=== PATIENT | male | born 1960 | race Caucasian/White ===

== ENCOUNTER 2019-08-02 07:58 | Outpatient (CLI) | payer BC, MEDICARE ==
[2019-08-02 12:37] LABS: Hemoglobin 11.9 g/dL (14.0-18.0); Mean Corpuscular HGB CONC 32.4 g/dL (32.0-36.0); Mean Corpuscular Hemoglobin 30.2 pg (27.0-31.0); Mean Platelet Volume 7.4 fL (7.4-10.4); Platelet Count 147 thou/uL (130-400); RBC Distribution Width 12.4 % (11.5-14.5); Red Blood Cell (RBC) Count 3.94 mill/uL (4.70-6.10); White Blood Cell (WBC) Count 4.7 thou/uL (4.8-10.8)
[2019-08-02 12:54] LABS: Bacteria/HPF None Seen HPF (None Seen); Bilirubin Negative (Negative); Blood, Urine Negative (Negative); Clarity Clear (Clear); Glucose, Urine (Dipstick) Normal (Negative); Leukocyte 25 Leu/uL (Negative); Nitrite Negative (Negative); Protein, Urine (Dipstick) Negative (Neg-Trace); RBC/HPF 0-3 HPF (0-3); Squamous Epithelial None Seen HPF (0-3); Urobilinogen Normal mg/dL (Less than 2); WBC/HPF 0-3 HPF (0-3)
[2019-08-02 13:06] LABS: Anion Gap 9 mmol/L (10-20); BUN (Urea Nitrogen) 20 mg/dL (8.4-25.7); Calc. Creatinine Clearance 0 mL/min (70-130); Calcium 9.6 mg/dL (7.8-10.44); Carbon Dioxide 32 mmol/L (22-29); Chloride 103 mmol/L (98-107); Estimated GFR-MDRD 83; Glucose 102 mg/dL (70-105); Potassium 5.5 mmol/L (3.5-5.1); Sodium 138 mmol/L (136-145)
[2019-08-03 07:14] LABS: % Free PSA 5.5 % (.); Total PSA 10.8 ng/mL (0.0-4.0)
== END 2019-08-02 07:59 | disposition home or self-care (01) ==
LOC: LABBT 07:58
PROVIDERS: ATTEND Urology
DX: Z01.818 Encounter for other preprocedural examination (principal); C61 Malignant neoplasm of prostate
CPT/HCPCS: 80048; 81001; 84153; 84154; 85027; 87086; 93005; 93010

== ENCOUNTER 2019-08-09 09:12 | Day surgery (SDC) | payer BC, MEDICARE ==
[2019-08-02 11:37] VITALS: BMI 37.5
[2019-08-09] MEDS ORDERED: cefTRIAXone\\ROCEPHIN 1 GM VIAL ONE (09:47)
[2019-08-09] MEDS ORDERED: Sodium Chloride 0.9% 100 ML ONE (09:48)
[2019-08-09] MEDS ORDERED: Fentanyl 100 MCG/2 ML VIAL ONE (11:52)
[2019-08-09] MEDS ORDERED: Midazolam HCl 2 mg/2 ml Vial ONE (11:52)
[2019-08-09] MEDS ORDERED: Bupivacaine 0.25% HCL 30 ML VIAL ONE (12:01)
[2019-08-09] MEDS ORDERED: Lidocaine 1% (PF) 30 ML VIAL ONE (12:23)
[2019-08-09] MEDS ORDERED: PROPOFOL 200 MG/20 ML VIAL ONE (14:57)
[2019-08-09] MEDS ORDERED: Lidocaine 1% PF 5 ML VIAL ONE (14:57)
--- NOTE | 2019-08-09 19:04 | OP ---
DATE OF PROCEDURE: 08/09/2019 PREOPERATIVE DIAGNOSIS: Malignant tumor prostate. POSTOPERATIVE DIAGNOSIS: Malignant tumor prostate. PROCEDURE: Transrectal ultrasound-guided biopsy of the prostate. ANESTHESIA: TIVA. SPECIMEN: A 12-core prostate biopsy samples. COMPLICATIONS: None. ESTIMATED BLOOD LOSS: 5 to 10 mL. DESCRIPTION OF PROCEDURE: After informed consent, the patient was taken to the operating room, transferred to the table. Anesthesia was established. A time-out was performed showing correct patient, site, and procedure. Preoperative antibiotics were administered. He was positioned on his left side. A digital rectal exam was performed showing a 40 g prostate with mild nodularity on the left side toward the base. The transrectal probe was inserted and 20 mL of lidocaine instilled as a prostate block. I then measured the prostate with measurements showing, width 5.15, height 3.06, length 5.27, and volume 43.56. Preoperative PSA is 10.8. Standard 12 core biopsy was then performed and all prostate specimens were sent in individual containers with formalin. The transrectal probe was then removed. The patient transferred back to his hospital bed and taken to PACU in stable condition, where he will be discharged to home upon recovery. Job ID: [id number]
== END 2019-08-09 13:46 | disposition home or self-care (01) ==
LOC: SDC 09:12
PROVIDERS: ATTEND Urology
PROC: 0VB03ZX Excision of Prostate, Percutaneous Approach, Diagnostic (ICD-10-PCS; principal; 2019-08-09)
DX: C61 Malignant neoplasm of prostate (principal); C14.0 Malignant neoplasm of pharynx, unspecified; E07.9 Disorder of thyroid, unspecified; Z79.899 Other long term (current) drug therapy
CPT/HCPCS: 88305; 88341; 88342; J0696; J2001; J2250; J2704; J3010; J3490; S0020

== ENCOUNTER 2019-10-13 11:31 | Emergency (ER) | payer BC, MEDICARE ==
[2019-10-13] MEDS ORDERED: Mag-Al 1200 mg/1200 mg/30 ML UDCUP ONE (12:02)
[2019-10-13] MEDS ORDERED: Lidocaine Viscous Sol 2% 15 ml UD Cup ONE (12:02)
[2019-10-13] MEDS ORDERED: Famotidine 20 MG TAB ONE (12:02)
--- NOTE | 2019-10-13 12:17 | RAD ---
XR Chest 1 View Portable HISTORY: Chest pain COMPARISON: 10/09/2019 FINDINGS: The heart size is normal. The lungs are well expanded without focal areas of consolidation, pneumothorax or large pleural effusions. There is chronic blunting of the right costophrenic angle. There are degenerative changes in the spine. Truncation of the distal right clavicle is stable . There are chronic changes in the right shoulder. IMPRESSION: No radiographic evidence of acute cardiopulmonary process.
[2019-10-13 12:23] LABS: #Eosinphils 0.1 thou/uL (0.0-0.7); #Lymphocytes 0.9 thou/uL (1.20-3.40); #Monocytes 0.4 thou/uL (0.11-0.59); #Neutrophils 3.6 thou/uL (1.40-6.50); %Basophils 0.2 % (0.0-1.0); %Eosinophils 1.4 % (0.0-10.0); %Monocytes 8.9 % (0.0-10.0); %Neutrophils 71.6 % (42.0-75.0); Hemoglobin 14.3 g/dL (14.0-18.0); Mean Corpuscular HGB CONC 31.5 g/dL (32.0-36.0); Mean Corpuscular Hemoglobin 28.8 pg (27.0-31.0); Mean Corpuscular Volume 91.4 fL (78.0-98.0); Platelet Count 154 thou/uL (130-400); RBC Distribution Width 12.5 % (11.5-14.5); Red Blood Cell (RBC) Count 4.97 mill/uL (4.70-6.10)
[2019-10-13 12:49] LABS: ALT (SGPT) 27 U/L (8-55); AST (SGOT) 41 U/L (5-34); Albumin 4.1 g/dL (3.5-5.0); Alkaline Phosphatase 66 U/L (40-110); Anion Gap 15 mmol/L (10-20); BUN (Urea Nitrogen) 13 mg/dL (8.4-25.7); Bilirubin, Total 0.8 mg/dL (0.2-1.2); CK (CPK) 161 U/L (30-200); Calc. Creatinine Clearance 0 mL/min (70-130); Calcium 9.5 mg/dL (7.8-10.44); Carbon Dioxide 30 mmol/L (22-29); Chloride 95 mmol/L (98-107); Estimated GFR-MDRD Greater than 90; Globulin 3.7 g/dL (2.4-3.5); Glucose 93 mg/dL (70-105); Protein, Total 7.8 g/dL (6.0-8.3); Sodium 136 mmol/L (136-145)
[2019-10-13] MEDS ORDERED: Morphine 4 MG/ML VIAL ONE (12:50)
[2019-10-13] MEDS ORDERED: Iopamidol-370 76% 500 ML 1 ML ONE (13:17)
[2019-10-13 13:25] LABS: Bacteria/HPF None Seen HPF (None Seen); Bilirubin Negative (Negative); Blood, Urine Negative (Negative); Clarity Clear (Clear); Glucose, Urine (Dipstick) Normal (Negative); Leukocyte Negative Leu/uL (Negative); Mucous/LPF Rare LPF (<2+); Nitrite Negative (Negative); Protein, Urine (Dipstick) 30 mg/dL (Neg-Trace); RBC/HPF 0-3 HPF (0-3); Squamous Epithelial None Seen HPF (0-3); Urobilinogen Normal mg/dL (Less than 2); WBC/HPF 0-3 HPF (0-3)
--- NOTE | 2019-10-13 14:10 | CT ---
EXAM: CT ABDOMEN AND PELVIS HISTORY: Right upper abdominal pain. COMPARISON: 12/17/2014 Procedure: Multiple contiguous axial images were obtained and a CT of the abdomen and pelvis with IV contrast. C oronal reformats were performed. FINDINGS: Lower Chest: Chronic changes in the lung bases. Vessels: Normal caliber aorta. No periaortic fat stranding. Heart: Normal heart size. No significant pericardial fluid Abdomen: Portal vein:Patent Gallbladder: Surgically absent Liver: Mild hypoattenuation liver due to hepatic steatosis. No enhancing masses. Pancreas: within normal limits. Spleen: within normal limits. Adrenals: within normal limits. Kidneys: Symmetric enhancement. No obstructive uropathy. 1.6 x 1.7 cm exophytic cyst in the upper arnold e of the right kidney. Peritoneum: No ascites or free air, no fluid collection. Bowel: Limited evaluation due to the lack of oral contrast administration. No evidence of bowel obstr uction. Ileocecal junction is unremarkable. Normal caliber appendix. Scattered fecal material in a nondistended, nondilated colon. Diverticulosis, without evidence of diverticulitis. Percutaneous bronwyn salima feeding tube is noted. Mesentery and Retroperitoneum: No enlarged mesenteric or retroperitoneal lymph nodes. Abdominal Wall: within normal limits. Pelvis: Reproductive Organs: Reproductive organs are unremarkable. Pelvis: No mass, lymphadenopathy, free air or free fluid. Bladder: within normal limits. Bones: No lytic or blastic lesions. Extensive degenerative changes of the distal thoracic and lumbar spine. Partial sacralization of the inferior most lumbar-type vertebral body. Multiple old right rib fractures. IMPRESSION: No evidence of acute intraabdominal\pelvic abnormality.
== END 2019-10-13 14:34 | disposition home or self-care (01) ==
LOC: ERS 11:31
DX: R10.9 Unspecified abdominal pain (principal); R10.811 Right upper quadrant abdominal tenderness; E03.9 Hypothyroidism, unspecified; I10 Essential (primary) hypertension; Z79.891 Long term (current) use of opiate analgesic; Z79.899 Other long term (current) drug therapy
CPT/HCPCS: 36415; 71045; 74177; 80053; 81003; 81015; 82550; 84484; 85025; 93005; 96374; J2270; Q9967

== ENCOUNTER 2020-02-12 13:40 | Inpatient (IN) | payer BC, MEDICARE, OTHER ==
[2020-02-12 14:07] LABS: #Eosinphils 0.2 thou/uL (0.0-0.7); #Lymphocytes 2.4 thou/uL (1.20-3.40); #Monocytes 0.7 thou/uL (0.11-0.59); %Basophils 0.3 % (0.0-1.0); %Eosinophils 1.4 % (0.0-10.0); %Lymphocytes 19.3 % (21.0-51.0); %Monocytes 5.4 % (0.0-10.0); %Neutrophils 73.7 % (42.0-75.0); Hemoglobin 13.1 g/dL (14.0-18.0); Mean Corpuscular HGB CONC 32.6 g/dL (32.0-36.0); Mean Corpuscular Hemoglobin 31.5 pg (27.0-31.0); Mean Corpuscular Volume 96.6 fL (78.0-98.0); Mean Platelet Volume 7.7 fL (7.4-10.4); Platelet Count 224 thou/uL (130-400); RBC Distribution Width 12.5 % (11.5-14.5); Red Blood Cell (RBC) Count 4.17 mill/uL (4.70-6.10); White Blood Cell (WBC) Count 12.2 thou/uL (4.8-10.8)
[2020-02-12] MEDS ORDERED: Propofol 1,000 MG/100 ML VIAL IV ONE (14:08)
[2020-02-12] MEDS ORDERED: fentaNYL Citrate/PF 2,000 MCG in Sodium Chloride 0.9% 60 ML IV SCH (14:13)
[2020-02-12 14:16] LABS: Prothrombin Time 12.7 sec (12.0-14.7)
[2020-02-12 14:19] LABS: Analyzer IN Cardio ER; Base Excess (BEa) -7.7 mEq/L (-2.0 to +3.0); CO2 Tension 153.3 mmHg (35.0-45.0); Calcium, Ionized (arterial) 1.31 mmol/L (1.12-1.30); Carboxyhemoglobin (COHb) 0.4 gm% (0.0-3.0); Hemoglobin (Hb) 13.6 g/dL (14.0-18.0); O2 Tension (PaO2), arterial 91.4 mmHg (80.0-100.0); Potassium - ABG Lab 4.45 mmol/L (3.70-5.30)
[2020-02-12 14:20] LABS: Puncture Site RRA
[2020-02-12 14:21] LABS: ALV-art Gradient 429.975 (0-20)
[2020-02-12 14:26] LABS: ALT (SGPT) 150 U/L (8-55); AST (SGOT) 193 U/L (5-34); Albumin 3.8 g/dL (3.5-5.0); Alkaline Phosphatase 94 U/L (40-110); Anion Gap 20 mmol/L (10-20); BUN (Urea Nitrogen) 17 mg/dL (8.4-25.7); Bilirubin, Total 0.5 mg/dL (0.2-1.2); Calc. Creatinine Clearance 0 mL/min (70-130); Calcium 9.3 mg/dL (7.8-10.44); Carbon Dioxide 23 mmol/L (22-29); Chloride 101 mmol/L (98-107); Estimated GFR-MDRD 58; Globulin 3.9 g/dL (2.4-3.5); Glucose 180 mg/dL (70-105); Potassium 4.7 mmol/L (3.5-5.1); Protein, Total 7.7 g/dL (6.0-8.3); Sodium 139 mmol/L (136-145)
[2020-02-12 14:48] LABS: CKMB 1.9 ng/mL (0-6.6)
--- NOTE | 2020-02-12 14:50 | RAD ---
PORTABLE CHEST: Comparison: 10-13-2019 History: Post intubation. FINDINGS: The tracheostomy tube is in good position. The patient is rotated. The heart size is enlarged. No con fluent infiltrates. IMPRESSION: Placement of a tracheostomy tube in good position. POS: [facility]DI
[2020-02-12] MEDS ORDERED: Norepinephrine 8 MG/0.9% NS 250 ML ONE (14:54)
[2020-02-12 14:58] LABS: Actual Bicarbonate (HCO3a) 19.4 mEq/L (22-28); Analyzer IN Cardio ER; CO2 Tension 27.5 mmHg (35.0-45.0); Calcium, Ionized (arterial) 1.14 mmol/L (1.12-1.30); Hemoglobin (Hb) 12.3 g/dL (14.0-18.0); pH, Arterial 7.47 (7.35-7.45)
[2020-02-12 15:01] LABS: O2 Tension (PaO2), arterial 58.3 mmHg (80.0-100.0); Puncture Site RFA
[2020-02-12 15:02] LABS: ALV-art Gradient 192.525 (0-20)
[2020-02-12] MEDS ORDERED: Fentanyl 100 MCG/2 ML VIAL ONE ×2 (15:16→16:36)
[2020-02-12] MEDS ORDERED: Cefepime 2 GM VIAL ONE (15:33)
[2020-02-12 16:15] LABS: Bilirubin Negative (Negative); Blood, Urine Trace (Negative); Clarity Clear (Clear); Glucose, Urine (Dipstick) 100 mg/dL (Negative); Leukocyte 250 Leu/uL (Negative); Nitrite Negative (Negative); Protein, Urine (Dipstick) 50 mg/dL (Neg-Trace); Squamous Epithelial 0-3 HPF (0-3); Urobilinogen Normal mg/dL (Less than 2)
[2020-02-12 16:19] LABS: Bacteria/HPF 1+ HPF (None Seen)
[2020-02-12] MEDS ORDERED: Ondansetron ODT 4 MG TAB SL PRN (16:37)
[2020-02-12] MEDS ORDERED: Vancomycin 1 GM/200 ML BAG ONE (16:37)
[2020-02-12] MEDS ORDERED: Acetaminophen 325 MG TAB PO PRN ×2 (16:37→18:09)
[2020-02-12] MEDS ORDERED: Ondansetron PF 4 MG/2 ML Vial IVP PRN ×2 (16:37→18:09)
--- NOTE | 2020-02-12 17:06 | CT ---
HEAD CT WITHOUT CONTRAST: Date: 02-12-2020 Comparison: None History: Unresponsive patient. Technique: Axial CT imaging at 5 mm intervals from vertex through the skull base without contrast. FINDINGS: There is mild mucosal thickening involving the alveolar recess of bilateral maxillary sinuses. There is no displaced calvarial fracture. There is no intracranial hemorrhage, midline shift, mass effect or ventricular enlargement. IMPRESSION: No acute findings. Results called to Dr. Pineda at 4:22 p.m. 02-12-2020. Code CR
[2020-02-12] MEDS ORDERED: Propofol BOLUS 1,000 MG/100 ML VIAL IV PRN (17:55)
[2020-02-12] MEDS ORDERED: Morphine 2 MG/ML SYRINGE SLOW IVP PRN (17:55)
[2020-02-12] MEDS ORDERED: DISCONTINUE PREVIOUS NARCOTIC PAIN MEDICATIONS AND BENZODIAZEPINES FS SCH (17:55)
[2020-02-12] MEDS ORDERED: Fentanyl BOLUS 250 ML IVPB PRN (17:55)
[2020-02-12] MEDS ORDERED: Lorazepam 2 MG/ML VIAL SLOW IVP PRN (17:55)
[2020-02-12] MEDS ORDERED: Norepinephrine 8 MG/0.9% NS 250 ML IVPB SCH (17:58)
[2020-02-12] MEDS ORDERED: HumaLOG 300 UNITS/3 ML VIAL SC PRN (18:09)
[2020-02-12] MEDS ORDERED: Guaifenesin DM 100-10/5 ML UDCUP PO PRN (18:09)
[2020-02-12] MEDS ORDERED: Bisacodyl 10 MG SUPP PR PRN (18:09)
[2020-02-12] MEDS ORDERED: Acetaminophen 650 MG Suppository PR PRN (18:09)
[2020-02-12] MEDS ORDERED: Dextrose 50% Abboject 50 ML SYRINGE SLOW IVP PRN (18:09)
[2020-02-12] MEDS ORDERED: Dextrose 5% in Water 1,000 ML IV PRN (18:09)
[2020-02-12 18:12] VITALS: BMI 37.2
[2020-02-12] MEDS ORDERED: Bacteriostatic Water 30 ML VIAL FS PRN (18:41)
[2020-02-12] MEDS: Sodium Chloride 0.9% 1,000 ML IV SCH (18:52)
--- NOTE | 2020-02-12 19:00 | RAD ---
CHEST ONE VIEW: History: Dyspnea. Comparison: Earlier the same day. FINDINGS: Tracheostomy tube is in place. Heart size is enlarged. I do not see a significant change since the pr ior exam. IMPRESSION: Stable exam. POS: ASHOK
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
[2020-02-12] MEDS: Propofol 1,000 MG/100 ML VIAL IV PRN (20:54)
[2020-02-12] MEDS: methylPREDNISolone Sod Succ 40 MG VIAL IVP SCH (22:07)
[2020-02-12] MEDS ORDERED: Vancomycin 1 GM in Premix Bag 1 BAG IVPB SCH (23:00)
[2020-02-13] MEDS: Propofol 1,000 MG/100 ML VIAL IV PRN ×2 (02:08→05:17)
[2020-02-13] MEDS: Cefepime 1 GM in Sodium Chloride 0.9% 100 ML IVPB SCH ×2 (02:08→14:53)
[2020-02-13] MEDS: Vancomycin HCl 1.75 GM in Sodium Chloride 0.9% 500 ML IVPB SCH ×2 (03:49→15:49)
[2020-02-13] MEDS ORDERED: Cefepime 2 GM in Sodium Chloride 0.9% 100 ML IVPB SCH (04:00)
[2020-02-13 04:34] LABS: #Lymphocytes 0.5 thou/uL (1.20-3.40); #Monocytes 0.2 thou/uL (0.11-0.59); #Neutrophils 5.7 thou/uL (1.40-6.50); %Eosinophils 0.1 % (0.0-10.0); %Lymphocytes 7.5 % (21.0-51.0); %Monocytes 2.3 % (0.0-10.0); %Neutrophils 90.1 % (42.0-75.0); Hemoglobin 11.5 g/dL (14.0-18.0); Mean Corpuscular HGB CONC 33.6 g/dL (32.0-36.0); Mean Corpuscular Hemoglobin 31.2 pg (27.0-31.0); Mean Corpuscular Volume 92.8 fL (78.0-98.0); Mean Platelet Volume 8.2 fL (7.4-10.4); Platelet Count 138 thou/uL (130-400); RBC Distribution Width 12.3 % (11.5-14.5); Red Blood Cell (RBC) Count 3.69 mill/uL (4.70-6.10); White Blood Cell (WBC) Count 6.4 thou/uL (4.8-10.8)
[2020-02-13 04:49] LABS: Anion Gap 15 mmol/L (10-20); BUN (Urea Nitrogen) 19 mg/dL (8.4-25.7); Calc. Creatinine Clearance 158 mL/min (70-130); Calcium 8.9 mg/dL (7.8-10.44); Carbon Dioxide 23 mmol/L (22-29); Chloride 105 mmol/L (98-107); Estimated GFR-MDRD 86; Glucose 114 mg/dL (70-105); Potassium 4.2 mmol/L (3.5-5.1); Sodium 139 mmol/L (136-145)
[2020-02-13] MEDS: Levothyroxine Sodium 100 MCG TAB PO SCH (05:18)
[2020-02-13] MEDS: methylPREDNISolone Sod Succ 40 MG VIAL IVP SCH ×3 (06:45→21:03)
[2020-02-13] MEDS: Enoxaparin Sodium 40 MG/0.4 ML SYRINGE SC SCH (08:43)
[2020-02-13] MEDS: Sodium Chloride 0.9% 1,000 ML IV SCH (08:52)
[2020-02-13] MEDS ORDERED: Prevnar 13-Val Conj/PF 0.5 ML SYRINGE IM ONE (09:00)
[2020-02-13] MEDS: Morphine 4 MG/ML VIAL SLOW IVP PRN ×3 (09:23→19:58)
--- NOTE | 2020-02-13 11:13 | CON ---
DATE OF CONSULTATION: 02/12/2020 HISTORY OF PRESENT ILLNESS: The patient was seen in the ER on 02/12/2020. A 59-year-old gentleman with head and neck cancer, status post trach and PEG because of recurrent aspiration. found him down. Trach was removed apparently, placed on non-rebreather in the ER, trach was replaced. Unknown how long the trach was out. He was then eventually transferred to the ICU. Unfortunately, a coronavirus test was done. Initial chest x-ray that I saw did not reveal any acute infiltrates. PAST MEDICAL HISTORY: Chronic pain syndrome, history of head and neck cancer treated with radiation, history of chronic pain syndrome. PREVIOUS SURGERIES: Tonsillectomy, trach, PEG, right ankle surgery, radical neck surgeries and dissection. SOCIAL HISTORY: No alcohol or tobacco abuse. HOME MEDICATIONS: Include: 1. Duragesic patch 50. 2. Ambien 10. 3. Lyrica 150. 4. Metoprolol 25. 5. Lisinopril 5. 6. Synthroid 200. 7. Hydrocodone. ALLERGIES: NONE. REVIEW OF SYSTEMS: Unobtainable and he was to be transferred to the ICU. PHYSICAL EXAMINATION: VITAL SIGNS: Saturations 100%, pulse 88, blood pressure . CHEST: No wheezing or crackles. CARDIAC: Normal S1 and S2. No gallops. ABDOMEN: PEG in place. NEURO: . EXTREMITIES: Trace edema. LABORATORY DATA: Showed white count 12,000, H and H of 13 and 40, platelet count is normal. His chemistry profile was unremarkable. BNP is normal. His blood gases prior to intubation, pO2 was 91, pCO2 of 153, pH 6.9. Post intubation, pO2 of 58, pCO2 of 27%, pH 7.47. His rate is 26. IMPRESSION: 1. Respiratory failure, malfunction trach, replaced by ER. 2. Chronic pain syndrome, morbid obesity, PEG in place, dysphagia, head and neck cancer. Continue broad-spectrum antibiotics, supportive care. We will try and wean in the next 24 to 48 hours. This is a 45-minute critical care time. Job ID: [id number]
--- NOTE | 2020-02-13 12:37 | PRG ---
DATE OF SERVICE: 02/13/2020 SUBJECTIVE: This morning, he is agitated on the vent, awake, alert, and responsive. OBJECTIVE: VITAL SIGNS: Pulse 66, sats are 99%, respiratory rate 17, and temperature 97. CHEST: Decreased breath sounds. No wheezing. CARDIAC: Normal S1, S2. No gallops. ABDOMEN: No masses. LABORATORY DATA: White count of 6000, hemoglobin and hematocrit 11 and 34, and platelet count 138. PO2 is 58, pCO2 of 27, pH 7.47. Lytes are normal. ASSESSMENT AND PLAN: Respiratory failure, percutaneous endoscopic gastrostomy and trach in place. I discussed with his . She wants him off the vent, but they would like to see the patient before they disconnect it. I am going to minimize his sedation. Continue antibiotics. We can put him on a trach collar later. His family cannot enter the room unless his coronavirus is negative. If he is off the trach, he will be transferred out of the ICU for comfort care purposes. This is one-half hour of critical care time exclusive of the 45-minute consultation note yesterday, which was not dictated. Job ID: [id number]
[2020-02-13] MEDS: fentaNYL 50 mcg/hour Patch TD SCH (12:47)
[2020-02-13 14:05] LABS: SARS-CoV-2 MS2 Positive; SARS-CoV-2 N Gene Negative; SARS-CoV-2 S Gene Negative; SARS-CoV-2 orf1ab Negative
[2020-02-13] MEDS ORDERED: cloNIDine 0.1 MG TAB PO PRN (15:42)
[2020-02-13] MEDS ORDERED: hydrALAZINE 20 MG/ML VIAL SLOW IVP PRN (15:42)
--- NOTE | 2020-02-13 15:46 | PDOC.HOSPP ---
- Subjective Encounter Date: 02/13/20 Encounter Time: 11:45 Subjective: got extubated this am, is on trach collar - Objective Vital Signs & Weight: Vital Signs (12 hours) Temp Pulse Resp Pulse Ox 02/13/20 12:00 97.7 F 100 02/13/20 08:23 66 02/13/20 08:00 97.8 F 22 H 02/13/20 07:20 98 02/13/20 06:00 22 H 02/13/20 04:00 22 H Weight Admit Weight 274 lb Weight 274 lb 4.081 oz Most Recent Monitor Data Heart Rate from ECG 76 NIBP 200/84 NIBP BP-Mean 122 Respiration from ECG 23 SpO2 100 I&O: 02/12/20 02/13/20 02/14/20 06:59 06:59 06:59 Intake Total 1590 195 Output Total 1445 650 Balance 145 -455 Result Diagrams: 02/13/20 03:55 02/13/20 03:55 Additional Labs: Accuchecks 02/13/20 02/12/20 02/12/20 04:00 22:16 13:53 POC Glucose 117 H 85 164 H Hospitalist ROS - Medication Medications: Active Medications Generic Name Dose Route Start Last Admin Trade Name Freq PRN Reason Stop Dose Admin Enoxaparin Sodium 40 mg 02/13/20 09:00 02/13/20 08:43 Lovenox SC 40 mg 0900 SARA Administration Fentanyl 50 mcg 02/13/20 10:00 02/13/20 12:47 Duragesic TD 50 mcg Q2DAYS SARA Administration Sodium Chloride 1,000 mls @ 70 mls/hr 02/12/20 18:09 02/13/20 08:52 Normal Saline 0.9% IV 1,000 mls .[id number] SARA Administration Cefepime HCl 1 gm/ Sodium 100 mls @ 200 mls/hr 02/13/20 03:00 02/13/20 14:53 Chloride IVPB 100 mls 0300,1500 SARA Administration Vancomycin HCl 1.75 gm/ Sodium 500 mls @ 250 mls/hr 02/13/20 04:00 02/13/20 03:49 Chloride IVPB 500 mls 0400,1600 SARA Administration Levothyroxine Sodium 200 mcg 02/13/20 06:00 02/13/20 05:18 Synthroid PO 200 mcg 0600 SARA Administration Methylprednisolone Sodium Succinate 20 mg 02/12/20 22:00 02/13/20 14:52 Solu-Medrol IVP 20 mg Q8HR SARA Administration Morphine Sulfate 4 mg 02/13/20 09:03 02/13/20 14:58 Morphine SLOW IVP 4 mg Q4H PRN Administration Mild-Moderate Pain (1-5) Propofol 1,000 mg 02/12/20 17:55 02/13/20 05:17 Diprivan IV 03/13/20 17:55 1,000 mg INF PRN Administration TO ACHIEVE GOAL RASS Protocol - Exam General Appearance: awake alert Eye: PERRL, anicteric sclera ENT: no oropharyngeal lesions, dry oral mucosa Neck: supple, no JVD Heart: RRR, no murmur Respiratory: no wheezes, no rales, rhonchi Gastrointestinal: soft, non-tender, non-distended, normal bowel sounds Gastrointestinal - other findings: peg+ Extremities: no cyanosis, no edema Neurological: cranial nerve grossly intact, no focal deficits Hosp A/P (1) Acute respiratory failure with hypoxia Code(s): J96.01 - ACUTE RESPIRATORY FAILURE WITH HYPOXIA Status: Acute (2) Metabolic encephalopathy Code(s): G93.41 - METABOLIC ENCEPHALOPATHY Status: Resolved (3) Hypothyroidism Code(s): E03.9 - HYPOTHYROIDISM, UNSPECIFIED Status: Chronic Qualifiers: Hypothyroidism type: unspecified Qualified Code(s): E03.9 - Hypothyroidism , unspecified (4) Aspiration pneumonia Code(s): J69.0 - PNEUMONITIS DUE TO INHALATION OF FOOD AND VOMIT Status: Acute Qualifiers: Aspiration pneumonia type: due to regurgitated food (5) Chronic pain syndrome Status: Chronic - Plan h/o tonsillar cancer in remission, prior h/o radiation, radical surgery to neck. on cefepime and vanc is on trach collar continue home dose of fentanyl tts and other pain meds lopressor, lisinopril, steroids, nebs hemostable covid 19 is -ve
[2020-02-13] MEDS: Atorvastatin Calcium 10 MG TAB PO SCH (20:08)
[2020-02-13] MEDS: Pregabalin 75 MG CAP PO SCH (20:08)
[2020-02-13] MEDS: Metoprolol Tartrate 25 MG TAB PO SCH (20:08)
[2020-02-13] MEDS: Lisinopril 5 MG TAB PO SCH (20:08)
[2020-02-13] MEDS ORDERED: Metoprolol Tartrate 25 MG TAB PO SCH (21:00)
[2020-02-14] MEDS: Sodium Chloride 0.9% 1,000 ML IV SCH ×3 (00:49→16:43)
[2020-02-14] MEDS: Morphine 4 MG/ML VIAL SLOW IVP PRN ×5 (00:52→20:57)
[2020-02-14] MEDS: Cefepime 1 GM in Sodium Chloride 0.9% 100 ML IVPB SCH (02:30)
[2020-02-14 04:09] LABS: #Lymphocytes 0.5 thou/uL (1.20-3.40); #Monocytes 0.3 thou/uL (0.11-0.59); #Neutrophils 9.2 thou/uL (1.40-6.50); %Basophils 0.1 % (0.0-1.0); %Eosinophils 0.1 % (0.0-10.0); %Lymphocytes 5.1 % (21.0-51.0); %Monocytes 3.1 % (0.0-10.0); %Neutrophils 91.6 % (42.0-75.0); Hemoglobin 11.4 g/dL (14.0-18.0); Mean Corpuscular HGB CONC 32.6 g/dL (32.0-36.0); Mean Corpuscular Hemoglobin 30.7 pg (27.0-31.0); Mean Corpuscular Volume 94.1 fL (78.0-98.0); Mean Platelet Volume 8.4 fL (7.4-10.4); Platelet Count 130 thou/uL (130-400); RBC Distribution Width 12.6 % (11.5-14.5)
[2020-02-14 04:22] LABS: Vancomycin, Trough 21.3 ug/mL
[2020-02-14 04:28] LABS: Anion Gap 14 mmol/L (10-20); BUN (Urea Nitrogen) 20 mg/dL (8.4-25.7); Calc. Creatinine Clearance 184 mL/min (70-130); Calcium 8.7 mg/dL (7.8-10.44); Carbon Dioxide 21 mmol/L (22-29); Chloride 107 mmol/L (98-107); Estimated GFR-MDRD Greater than 90; Glucose 123 mg/dL (70-105); Potassium 4.2 mmol/L (3.5-5.1); Sodium 138 mmol/L (136-145)
[2020-02-14] MEDS: Vancomycin HCl 1.75 GM in Sodium Chloride 0.9% 500 ML IVPB SCH (05:04)
[2020-02-14] MEDS: Levothyroxine Sodium 100 MCG TAB PO SCH (05:04)
[2020-02-14] MEDS: methylPREDNISolone Sod Succ 40 MG VIAL IVP SCH (05:05)
[2020-02-14] MEDS ORDERED: Vancomycin 1.5 GRAM/300 ML BAG 1.5 GM in Premix Bag 1 BAG IVPB SCH (06:00)
[2020-02-14] MEDS: Cefdinir 300 MG CAP PO SCH ×2 (08:45→20:49)
[2020-02-14] MEDS: Pregabalin 75 MG CAP PO SCH ×3 (08:45→20:50)
[2020-02-14] MEDS: Enoxaparin Sodium 40 MG/0.4 ML SYRINGE SC SCH (08:47)
[2020-02-14] MEDS: Metoprolol Tartrate 25 MG TAB PO SCH ×2 (08:47→20:50)
--- NOTE | 2020-02-14 12:58 | PRG ---
DATE OF SERVICE: 02/14/2020 SUBJECTIVE: He looks like he is at his baseline. OBJECTIVE: VITAL SIGNS: His temperature 97, pulse 58, saturations are 100% on trach collar, blood pressure . GENERAL: His is at the bedside, who states that he has #7 Bivona tube, which has been changed at [facility] 2 years ago. She requested to put him on a similar tube if available. CHEST: No wheezing. No crackles. CARDIAC: Normal S1 and S2. No gallops. ABDOMEN: No masses. LABORATORY DATA: Otherwise, unremarkable. Sputum is growing Klebsiella, probably more than likely it is a colonization. IMPRESSION AND PLAN: 1. Respiratory failure, malfunctioning trach. High negative. 2. We will try and switch him to Bivona #7 if possible. 3. P.o. antibiotics. 4. Hopefully, he can be discharged home in the next 24 to 48 hours. Job ID: [id number]
--- NOTE | 2020-02-14 13:00 | PDOC.HOSPP ---
- Subjective Encounter Date: 02/14/20 Encounter Time: 09:30 Subjective: no sob, is feeling better at bedside wants to have oral diet and not formula via peg - Objective Vital Signs & Weight: Vital Signs (12 hours) Temp Pulse Resp BP Pulse Ox 02/14/20 12:13 97.6 F 62 20 155/79 H 100 02/14/20 08:45 100 02/14/20 08:40 58 L 20 100 02/14/20 07:28 97.5 F L 57 L 22 H 154/82 H 100 02/14/20 06:42 100 02/14/20 04:38 97.8 F 72 20 171/91 H 100 02/14/20 02:48 100 Weight Admit Weight 274 lb Weight 274 lb 4.081 oz Most Recent Monitor Data Heart Rate from ECG 73 NIBP 186/95 NIBP BP-Mean 125 Respiration from ECG 15 SpO2 99 I&O: 02/13/20 02/14/20 02/15/20 06:59 06:59 06:59 Intake Total 1590 1345 Output Total 1445 910 Balance 145 435 Result Diagrams: 02/14/20 03:30 02/14/20 03:30 Additional Labs: Accuchecks 02/14/20 02/14/20 02/13/20 10:20 03:40 22:56 POC Glucose 124 H 124 H 123 H 02/13/20 02/13/20 17:57 15:58 POC Glucose 137 H 123 H Hospitalist ROS - Medication Medications: Active Medications Generic Name Dose Route Start Last Admin Trade Name Freq PRN Reason Stop Dose Admin Atorvastatin Calcium 10 mg 02/13/20 21:00 02/13/20 20:08 Lipitor PO 10 mg HS SARA Administration Cefdinir 300 mg 02/14/20 09:00 02/14/20 08:45 Omnicef PO 300 mg BID SARA Administration Enoxaparin Sodium 40 mg 02/13/20 09:00 02/14/20 08:47 Lovenox SC 40 mg 0900 SARA Administration Fentanyl 50 mcg 02/13/20 10:00 02/13/20 12:47 Duragesic TD 50 mcg Q2DAYS SARA Administration Hydralazine HCl 10 mg 02/13/20 15:42 02/13/20 15:58 Apresoline SLOW IVP 10 mg Q4H PRN Administration sbp>180 Sodium Chloride 1,000 mls @ 70 mls/hr 02/12/20 18:09 02/14/20 12:11 Normal Saline 0.9% IV Not Given .[id number] SARA Levothyroxine Sodium 200 mcg 02/13/20 06:00 02/14/20 05:04 Synthroid PO 200 mcg 0600 SARA Administration Lisinopril 5 mg 02/13/20 21:00 02/13/20 20:08 Zestril PO 5 mg QPM SARA Administration Metoprolol Tartrate 25 mg 02/13/20 21:00 02/14/20 08:47 Lopressor PO 25 mg BID SARA Administration Morphine Sulfate 4 mg 02/13/20 09:03 02/14/20 09:19 Morphine SLOW IVP 4 mg Q4H PRN Administration Mild-Moderate Pain (1-5) Pregabalin 150 mg 02/13/20 21:00 02/14/20 08:45 Lyrica PO 150 mg TID SARA Administration Sodium Chloride 10 ml 02/12/20 18:43 02/14/20 08:47 Flush - Normal Saline IVF 10 ml PRN PRN Administration Saline Flush - Exam General Appearance: awake alert Eye: PERRL, anicteric sclera ENT: no oropharyngeal lesions, moist mucosa Neck: no JVD Neck - other findings: trach+ Heart: RRR, no murmur Respiratory: no wheezes, no rales Gastrointestinal: soft, non-tender, non-distended, normal bowel sounds Gastrointestinal - other findings: peg+ Extremities: no cyanosis, no edema Neurological: cranial nerve grossly intact, no focal deficits Psychiatric: normal affect, A&O x 3 Hosp A/P (1) Acute respiratory failure with hypoxia Code(s): J96.01 - ACUTE RESPIRATORY FAILURE WITH HYPOXIA Status: Resolved (2) Metabolic encephalopathy Code(s): G93.41 - METABOLIC ENCEPHALOPATHY Status: Resolved (3) Hypothyroidism Code(s): E03.9 - HYPOTHYROIDISM, UNSPECIFIED Status: Chronic Qualifiers: Hypothyroidism type: unspecified Qualified Code(s): E03.9 - Hypothyroidism , unspecified (4) Aspiration pneumonia Code(s): J69.0 - PNEUMONITIS DUE TO INHALATION OF FOOD AND VOMIT Status: Acute Qualifiers: Aspiration pneumonia type: due to regurgitated food (5) Chronic pain syndrome Status: Chronic - Plan h/o tonsillar cancer in remission, prior h/o radiation, radical surgery to neck. on omnicef is on trach collar continue home dose of fentanyl tts and other pain meds lopressor, lisinopril, steroids, nebs hemostable covid 19 is -ve PT to mobilize today, dc plan in am home remove femoral line, heredia and start oral diet per pt request with asp risk
[2020-02-14] MEDS: Atorvastatin Calcium 10 MG TAB PO SCH (20:49)
[2020-02-14] MEDS: Lisinopril 5 MG TAB PO SCH (20:49)
[2020-02-14] MEDS: Senokot 8.6 MG TAB PER TUBE SCH (20:50)
[2020-02-15] MEDS: Morphine 4 MG/ML VIAL SLOW IVP PRN ×3 (01:29→13:42)
[2020-02-15] MEDS: Sodium Chloride 0.9% 1,000 ML IV SCH (01:34)
[2020-02-15] MEDS: Levothyroxine Sodium 100 MCG TAB PO SCH (05:19)
[2020-02-15 07:01] LABS: #Basophils 0.1 thou/uL (0.0-0.2); #Monocytes 0.6 thou/uL (0.11-0.59); #Neutrophils 6.5 thou/uL (1.40-6.50); %Basophils 1.1 % (0.0-1.0); %Eosinophils 0.2 % (0.0-10.0); %Lymphocytes 12.5 % (21.0-51.0); %Monocytes 6.8 % (0.0-10.0); %Neutrophils 79.4 % (42.0-75.0); Hemoglobin 11.3 g/dL (14.0-18.0); Mean Corpuscular HGB CONC 33.9 g/dL (32.0-36.0); Mean Corpuscular Hemoglobin 31.4 pg (27.0-31.0); Mean Corpuscular Volume 92.8 fL (78.0-98.0); Mean Platelet Volume 8.9 fL (7.4-10.4); Platelet Count 132 thou/uL (130-400); RBC Distribution Width 12.7 % (11.5-14.5); Red Blood Cell (RBC) Count 3.59 mill/uL (4.70-6.10); White Blood Cell (WBC) Count 8.1 thou/uL (4.8-10.8)
[2020-02-15 07:19] LABS: Anion Gap 9 mmol/L (10-20); BUN (Urea Nitrogen) 23 mg/dL (8.4-25.7); Calc. Creatinine Clearance 191 mL/min (70-130); Calcium 8.7 mg/dL (7.8-10.44); Carbon Dioxide 27 mmol/L (22-29); Chloride 108 mmol/L (98-107); Estimated GFR-MDRD Greater than 90; Glucose 101 mg/dL (70-105); Potassium 4.1 mmol/L (3.5-5.1); Sodium 140 mmol/L (136-145)
[2020-02-15 07:23] VITALS: TEMP 97.7
[2020-02-15] MEDS ORDERED: predniSONE 20 MG TAB PO SCH (08:00)
[2020-02-15] MEDS: Pregabalin 75 MG CAP PO SCH (10:17)
[2020-02-15] MEDS: Cefdinir 300 MG CAP PO SCH (10:17)
[2020-02-15] MEDS: Enoxaparin Sodium 40 MG/0.4 ML SYRINGE SC SCH (10:17)
[2020-02-15] MEDS: Metoprolol Tartrate 25 MG TAB PO SCH (10:18)
[2020-02-15] MEDS: Senokot 8.6 MG TAB PER TUBE SCH (10:18)
--- NOTE | 2020-02-15 10:18 | PRG ---
DATE OF SERVICE: 02/15/2020 SUBJECTIVE: This morning, he is awake, alert and responsive. OBJECTIVE: VITAL SIGNS: Temperature 97, sats 92% on trach collar, and blood pressure . CHEST: Decreased breath sounds. No wheezing. CARDIAC: Normal S1 and S2. No gallops. ABDOMEN: Soft. No masses. LABORATORY DATA: Unremarkable. His #6 cuffed trach was replaced with a #6 fenestrated cuffless trach. He tolerated procedure well. IMPRESSION: 1. Permanent trach. 2. Cuffless Shiley in place, PEG in place. 3. Head and neck cancer. Pulmonary jacome, home any time; taper prednisone and antibiotics. Job ID: [id number]
[2020-02-15] MEDS: fentaNYL 50 mcg/hour Patch TD SCH (10:47)
[2020-02-15 11:06] VITALS: BP 177/85
--- NOTE | 2020-02-15 13:10 | PDOC.HOSPP ---
- Subjective Encounter Date: 02/15/20 Encounter Time: 09:15 Subjective: no sob or pain at bedside feels better - Objective Vital Signs & Weight: Vital Signs (12 hours) Temp Pulse Resp BP Pulse Ox 02/15/20 11:04 97.7 F 56 L 20 177/85 H 94 L 02/15/20 07:27 92 L 02/15/20 07:20 97.7 F 70 22 H 119/66 92 L 02/15/20 04:00 98.1 F 55 L 18 160/89 H 97 Weight Admit Weight 274 lb Weight 274 lb 4.081 oz Most Recent Monitor Data Heart Rate from ECG 73 NIBP 186/95 NIBP BP-Mean 125 Respiration from ECG 15 SpO2 99 I&O: 02/14/20 02/15/20 02/16/20 06:59 06:59 06:59 Intake Total 1345 1400 Output Total 910 1400 Balance 435 0 Result Diagrams: 02/15/20 06:20 02/15/20 06:19 Additional Labs: Accuchecks 02/15/20 02/15/20 02/14/20 11:12 05:16 19:24 POC Glucose 115 H 122 H 152 H 02/14/20 16:39 POC Glucose 129 H Hospitalist ROS - Medication Medications: Active Medications Generic Name Dose Route Start Last Admin Trade Name Freq PRN Reason Stop Dose Admin Atorvastatin Calcium 10 mg 02/13/20 21:00 02/14/20 20:49 Lipitor PO 10 mg HS SARA Administration Cefdinir 300 mg 02/14/20 09:00 02/15/20 10:17 Omnicef PO 300 mg BID SARA Administration Enoxaparin Sodium 40 mg 02/13/20 09:00 02/15/20 10:17 Lovenox SC 40 mg 0900 SARA Administration Fentanyl 50 mcg 02/13/20 10:00 02/15/20 10:47 Duragesic TD 50 mcg Q2DAYS SARA Administration Hydralazine HCl 10 mg 02/13/20 15:42 02/13/20 15:58 Apresoline SLOW IVP 10 mg Q4H PRN Administration sbp>180 Sodium Chloride 1,000 mls @ 70 mls/hr 02/12/20 18:09 02/15/20 01:34 Normal Saline 0.9% IV 1,000 mls .[id number] SARA Administration Levothyroxine Sodium 200 mcg 02/13/20 06:00 02/15/20 05:19 Synthroid PO 200 mcg 0600 SARA Administration Lisinopril 5 mg 02/13/20 21:00 02/14/20 20:49 Zestril PO 5 mg QPM SARA Administration Metoprolol Tartrate 25 mg 02/13/20 21:00 02/15/20 10:18 Lopressor PO 25 mg BID SARA Administration Morphine Sulfate 4 mg 02/13/20 09:03 02/15/20 05:19 Morphine SLOW IVP 4 mg Q4H PRN Administration Mild-Moderate Pain (1-5) Prednisone 20 mg 02/15/20 08:00 02/15/20 10:18 Prednisone PO 02/20/20 08:01 20 mg QAM-WM SARA Administration Pregabalin 150 mg 02/13/20 21:00 02/15/20 10:17 Lyrica PO 150 mg TID SARA Administration Senna 1 tab 02/14/20 21:00 02/15/20 10:18 Senokot PER TUBE 1 tab BID SARA Administration Sodium Chloride 10 ml 02/12/20 18:43 02/14/20 08:47 Flush - Normal Saline IVF 10 ml PRN PRN Administration Saline Flush - Exam General Appearance: awake alert Eye: PERRL, anicteric sclera ENT: no oropharyngeal lesions, moist mucosa Neck: no JVD Neck - other findings: trach+ Heart: RRR, no murmur Respiratory: no wheezes, no rales Gastrointestinal: soft, non-tender, non-distended, normal bowel sounds Extremities: no cyanosis, no edema Neurological: cranial nerve grossly intact, no focal deficits Psychiatric: A&O x 3 Hosp A/P (1) Acute respiratory failure with hypoxia Code(s): J96.01 - ACUTE RESPIRATORY FAILURE WITH HYPOXIA Status: Resolved (2) Metabolic encephalopathy Code(s): G93.41 - METABOLIC ENCEPHALOPATHY Status: Resolved (3) Hypothyroidism Code(s): E03.9 - HYPOTHYROIDISM, UNSPECIFIED Status: Chronic Qualifiers: Hypothyroidism type: unspecified Qualified Code(s): E03.9 - Hypothyroidism , unspecified (4) Aspiration pneumonia Code(s): J69.0 - PNEUMONITIS DUE TO INHALATION OF FOOD AND VOMIT Status: Acute Qualifiers: Aspiration pneumonia type: due to regurgitated food (5) Chronic pain syndrome Status: Chronic - Plan h/o tonsillar cancer in remission, prior h/o radiation, radical surgery to neck. on omnicef is on trach collar continue home dose of fentanyl tts and other pain meds lopressor, lisinopril, steroids, nebs hemostable covid 19 is -ve PT to mobilize today, dc home if he can manage ADL's at home oral diet per pt request with asp risk d/w patient and at bedside
--- NOTE | 2020-02-16 13:04 | DIS ---
DATE OF ADMISSION: 02/12/2020 DATE OF DISCHARGE: 02/15/2020 DISCHARGE DISPOSITION: Home with [facility]. PRIMARY DISCHARGE DIAGNOSES: Acute respiratory failure with hypoxia and hypercapnia, metabolic encephalopathy, hypothyroidism, aspiration pneumonia, chronic pain syndrome. PROCEDURES DONE DURING HOSPITALIZATION: Chest x-ray done showed no obvious infiltrate. CT brain showed no acute findings. Sputum cultures grew Klebsiella pneumoniae sensitive to all antibiotics. Blood cultures 1 of 2 grew coag-negative Staph likely contaminant. Urine culture, no growth. H and H of 11 and 33, platelet count 132, MCV is 92. Blood gas on arrival showed a pH of 6.90, pCO2 of 153, PO2 of 91. BUN 23, creatinine 0.7. BNP 218. Albumin 3.8. Initially, AST and ALT were 193 and 150, total bilirubin 0.5. COVID-19 PCR negative. INPATIENT CONSULT: Dr. Reynolds for Pulmonology. DISCHARGE MEDICATIONS: 1. Lipitor 10 mg p.o. at bedtime. 2. Fentanyl 50 mcg transdermal patch q.3 days. 3. [place] p.r.n. for pain. 4. Levothyroxine 200 mcg p.o. daily. 5. Lisinopril 5 mg p.o. daily. 6. Metoprolol tartrate 25 mg p.o. q.p.m. 7. Lyrica 150 mg 3 times daily. 8. Omnicef 300 mg p.o. twice daily for 4 days. 9. Prednisone 20 mg p.o. daily for 4 days and to discontinue after that. ALLERGIES: NO KNOWN DRUG ALLERGIES. DISCHARGE PLAN: The patient to follow up with his primary care physician, Dr. Jama Ramsey in 1 week. BRIEF COURSE DURING HOSPITALIZATION: The patient initially got admitted on the after he was found to be confused and not breathing well. On arrival in the ER, the patient was obtunded and had to be intubated via his trach. His saturations were 80% on arrival. The patient has known history of having tracheostomy with history of tonsillar cancer, prior radiation and radical surgery to the neck with suspected underlying obstructive sleep apnea as well. He was successfully extubated off the ventilator. He has had consultation with Dr. Reynolds for Pulmonology. The patient has severe respiratory acidosis on arrival, which has resolved. Prior to discharge, he is ambulating and orally eating. He has a PEG tube, but he prefers eating orally. He is at risk for aspiration, which the patient is aware and he wants to continue eating orally. Complete updates were given to the patient and his at bedside. He is hemodynamically stable and will be shortly discharged home. Please see a [id number] documentation for the day of discharge on [employer]. Job ID: [id number]
== END 2020-02-15 16:26 | disposition home health service (06) | DRG 208 ==
LOC: ERS 13:40 → CCU 14:14 → T4-B 02-13 17:19
PROVIDERS: ADMIT Internal Medicine; ATTEND Internal Medicine
PROC: 5A1935Z Respiratory Ventilation, Less than 24 Consecutive Hours (ICD-10-PCS; principal; 2020-02-12)
PROC: 3E033XZ Introduction of Vasopressor into Peripheral Vein, Percutaneous Approach (ICD-10-PCS; 2020-02-12)
PROC: 02HV33Z Insertion of Infusion Device into Superior Vena Cava, Percutaneous Approach (ICD-10-PCS; 2020-02-12)
PROC: 0B21XFZ Change Tracheostomy Device in Trachea, External Approach (ICD-10-PCS; 2020-02-12)
PROC: 06HY33Z Insertion of Infusion Device into Lower Vein, Percutaneous Approach (ICD-10-PCS; 2020-02-12)
DX: J69.0 Pneumonitis due to inhalation of food and vomit (principal); J96.01 Acute respiratory failure with hypoxia; G93.41 Metabolic encephalopathy; J96.02 Acute respiratory failure with hypercapnia; J95.03 Malfunction of tracheostomy stoma; Z20.828 Contact with and (suspected) exposure to other viral communicable diseases; E03.9 Hypothyroidism, unspecified; G89.4 Chronic pain syndrome; E66.01 Morbid (severe) obesity due to excess calories; I10 Essential (primary) hypertension; C14.0 Malignant neoplasm of pharynx, unspecified; G47.33 Obstructive sleep apnea (adult) (pediatric); Z90.49 Acquired absence of other specified parts of digestive tract; Z79.899 Other long term (current) drug therapy; Z93.0 Tracheostomy status; Z79.890 Hormone replacement therapy; Z68.37 Body mass index [BMI] 37.0-37.9, adult
CPT/HCPCS: 31500; 36415; 36416; 36556; 51702; 70450; 71045; 80048; 80053; 80202; 81003; 81015; 82140; 82553; 82805; 83735; 83880; 84484; 85025; 85610; 87040; 87070; 87077; 87086; 87149; 87186; 87205; 87635; 93005; 94002; 94003; 94640; 94760; 96365; 96366; 96368; 96375; 96376; 99292; J0360; J0692; J1650; J2270; J2704; J2920; J3010; J3370; J3490; J7030; J7512; U0003